=== PATIENT | female | born 1955 | race Caucasian/White ===

== ENCOUNTER 2021-12-10 22:04 | Inpatient (IN) ==
[2021-12-11] MEDS ORDERED: Ondansetron 4 MG/2 ML VIAL IVP PRN (00:38)
[2021-12-11] MEDS ORDERED: Naloxone 0.4 MG/ML INJ IVP PRN (00:38)
[2021-12-11 07:59] LABS: Basophils % 0.2 %; Eosinophils # 0.1 K/mcL (0.0-0.6); Eosinophils % 1.2 %; Hematocrit 36.1 % (35.3-44.9); Hemoglobin 11.3 g/dL (11.5-15.4); Immature Granulocytes % 0.3 % (0-4); Lymphocytes # 1.4 K/mcL (0.6-4.6); Lymphocytes % 23.4 %; Mean Corpuscular HGB Conc 31.3 g/dL (31.6-35.5); Mean Corpuscular Hemoglobin 29.4 pg (28.0-33.3); Mean Corpuscular Volume 93.8 fL (83.0-100.0); Mean Platelet Volume 9.7 fL (9.4-12.4); Monocytes # 0.4 K/mcL (0.0-1.3); Monocytes % 6.6 %; Neutrophils # 4.1 K/mcL (1.6-8.9); Platelet Count 228 K/mcL (140-400); Red Blood Count 3.85 M/mcL (3.82-4.97); Red Cell Distribution Width 13.3 % (11.5-14.5); Segmented Neutrophils % 68.3 %
[2021-12-11 08:09] LABS: Prothrombin Time 11.3 Seconds (9.4-12.1)
[2021-12-11 08:16] LABS: Calcium 8.5 mg/dL (8.6-10.3); Magnesium 1.7 mg/dL (1.6-2.6); Potassium 4.2 mEq/L (3.5-5.1)
[2021-12-11 09:05] LABS: Thyroid Stimulating Hormone 1.294 mcIU/mL (0.340-5.600)
[2021-12-11] MEDS ORDERED: Fluticasone Propionate Nasal 50 MCG/SPRAY BOTTLE NS PRN (10:59)
[2021-12-11] MEDS ORDERED: Ergocalciferol (VIT D2) 50,000 UNIT (1.25MG) CAP PO SCH (11:00)
[2021-12-11] MEDS ORDERED: Dextrose Gel 15 GM/37.5 ML TUBE PO PRN ×2 (11:02)
[2021-12-11] MEDS ORDERED: *HR* Dextrose 50 % in Water (Syg) 50 ML SYRINGE IVP PRN (11:02)
[2021-12-11] MEDS ORDERED: D5% in Water 1,000 ML IVC PRN (11:02)
[2021-12-11] MEDS: Insulin LISPRO 300 UNITS/3 ML VIAL SUBQ SCH ×4 (11:43→20:17)
[2021-12-11] MEDS: Multivit/Ca/Min/Fe/FA 1 TAB TABLET PO SCH (11:48)
[2021-12-11] MEDS: Isosorbide MONOnitrate (24 HR) 30 MG TAB.ER.24H PO SCH (11:48)
[2021-12-11] MEDS: Aspirin Enteric Coated 81 MG Tablet PO SCH (11:48)
[2021-12-11] MEDS: PARoxetine 20 MG TABLET PO SCH (11:49)
[2021-12-11] MEDS: Loratadine 10 MG TABLET PO SCH (11:49)
[2021-12-11] MEDS: carvediloL 6.25 MG TABLET PO SCH ×2 (11:53→16:15)
[2021-12-11] MEDS: Ranolazine 500 MG TAB.ER.12H PO SCH ×2 (11:53→20:16)
[2021-12-11] MEDS: Gabapentin 300 MG CAPSULE PO SCH ×2 (11:53→20:15)
[2021-12-11] MEDS: Acetaminophen 325 MG TABLET PO PRN (13:18)
[2021-12-11] MEDS: Insulin DETEMIR 100 UNIT/ML X5UNITS SUBQ SCH (20:16)
[2021-12-12] MEDS: Acetaminophen 325 MG TABLET PO PRN ×2 (05:41→23:30)
[2021-12-12] MEDS: *HR* Enoxaparin 40 MG/0.4 ML SYRINGE SQ SCH (05:42)
[2021-12-12 07:27] LABS: Calcium 8.9 mg/dL (8.6-10.3); Hematocrit 36.8 % (35.3-44.9); Hemoglobin 11.6 g/dL (11.5-15.4); Mean Corpuscular HGB Conc 31.5 g/dL (31.6-35.5); Mean Corpuscular Hemoglobin 29.4 pg (28.0-33.3); Mean Corpuscular Volume 93.4 fL (83.0-100.0); Platelet Count 239 K/mcL (140-400); Potassium 4.7 mEq/L (3.5-5.1); Red Blood Count 3.94 M/mcL (3.82-4.97); Red Cell Distribution Width 13.4 % (11.5-14.5)
[2021-12-12 07:46] LABS: Thyroid Stimulating Hormone 3.144 mcIU/mL (0.340-5.600)
[2021-12-12] MEDS: Multivit/Ca/Min/Fe/FA 1 TAB TABLET PO SCH (08:16)
[2021-12-12] MEDS: carvediloL 6.25 MG TABLET PO SCH ×2 (08:16→16:43)
[2021-12-12] MEDS: Gabapentin 300 MG CAPSULE PO SCH ×2 (08:16→21:15)
[2021-12-12] MEDS: Ranolazine 500 MG TAB.ER.12H PO SCH ×2 (08:16→21:15)
[2021-12-12] MEDS: Aspirin Enteric Coated 81 MG Tablet PO SCH (08:16)
[2021-12-12] MEDS: Loratadine 10 MG TABLET PO SCH (08:16)
[2021-12-12] MEDS: PARoxetine 20 MG TABLET PO SCH (08:17)
[2021-12-12] MEDS: Isosorbide MONOnitrate (24 HR) 30 MG TAB.ER.24H PO SCH (08:17)
[2021-12-12] MEDS: Cyanocobalamin (B-12) 1,000 MCG TABLET PO SCH (08:17)
[2021-12-12] MEDS: Insulin LISPRO 300 UNITS/3 ML VIAL SUBQ SCH ×7 (08:17→21:15)
[2021-12-12 09:30] LABS: Folate 10.9 ng/mL (3.0-16.0)
[2021-12-12 10:20] LABS: Estimated Average Glucose 229 mg/dl; Hemoglobin A1C 9.6 %
[2021-12-12] MEDS: Insulin DETEMIR 100 UNIT/ML X5UNITS SUBQ SCH (21:15)
[2021-12-12] MEDS ORDERED: Insulin LISPRO 300 UNITS/3 ML VIAL SUBQ SCH (21:26)
[2021-12-13] MEDS: *HR* Enoxaparin 40 MG/0.4 ML SYRINGE SQ SCH (05:29)
[2021-12-13 05:41] LABS: Hematocrit 35.9 % (35.3-44.9); Hemoglobin 11.6 g/dL (11.5-15.4); Mean Corpuscular HGB Conc 32.3 g/dL (31.6-35.5); Mean Corpuscular Hemoglobin 29.7 pg (28.0-33.3); Mean Corpuscular Volume 91.8 fL (83.0-100.0); Mean Platelet Volume 10.2 fL (9.4-12.4); Platelet Count 226 K/mcL (140-400); Red Blood Count 3.91 M/mcL (3.82-4.97); Red Cell Distribution Width 13.2 % (11.5-14.5); White Blood Count 7.6 K/mcL (4.3-11.1)
[2021-12-13] MEDS: Aspirin Enteric Coated 81 MG Tablet PO SCH (08:17)
[2021-12-13] MEDS: Gabapentin 300 MG CAPSULE PO SCH ×2 (08:17→20:31)
[2021-12-13] MEDS: Cyanocobalamin (B-12) 1,000 MCG TABLET PO SCH (08:17)
[2021-12-13] MEDS: Isosorbide MONOnitrate (24 HR) 30 MG TAB.ER.24H PO SCH (08:17)
[2021-12-13] MEDS: carvediloL 6.25 MG TABLET PO SCH ×2 (08:17→17:38)
[2021-12-13] MEDS: Ranolazine 500 MG TAB.ER.12H PO SCH ×2 (08:17→20:31)
[2021-12-13] MEDS: Multivit/Ca/Min/Fe/FA 1 TAB TABLET PO SCH (08:17)
[2021-12-13] MEDS: PARoxetine 20 MG TABLET PO SCH (08:17)
[2021-12-13] MEDS: Loratadine 10 MG TABLET PO SCH (08:17)
[2021-12-13] MEDS: Insulin LISPRO 300 UNITS/3 ML VIAL SUBQ SCH ×3 (08:18→17:22)
[2021-12-13] MEDS: Acetaminophen 325 MG TABLET PO PRN ×2 (08:22→20:32)
[2021-12-13 08:30] LABS: Calcium 8.8 mg/dL (8.6-10.3); Potassium 4.4 mEq/L (3.5-5.1)
[2021-12-13] MEDS: Insulin DETEMIR 100 UNIT/ML X5UNITS SUBQ SCH ×2 (09:18→20:32)
[2021-12-13] MEDS: lamoTRIgine 25 MG TABLET PO SCH (14:25)
[2021-12-13 18:49] VITALS: RESP 16
[2021-12-14] MEDS: *HR* Enoxaparin 40 MG/0.4 ML SYRINGE SQ SCH (06:40)
[2021-12-14 07:30] LABS: Calcium 9.1 mg/dL (8.6-10.3); Potassium 4.1 mEq/L (3.5-5.1)
[2021-12-14 07:32] LABS: Hematocrit 38.2 % (35.3-44.9); Hemoglobin 12.7 g/dL (11.5-15.4); Mean Corpuscular HGB Conc 33.2 g/dL (31.6-35.5); Mean Corpuscular Volume 90.3 fL (83.0-100.0); Mean Platelet Volume 9.9 fL (9.4-12.4); Platelet Count 253 K/mcL (140-400); Red Blood Count 4.23 M/mcL (3.82-4.97); Red Cell Distribution Width 13.3 % (11.5-14.5); White Blood Count 7.8 K/mcL (4.3-11.1)
[2021-12-14] MEDS ORDERED: Insulin LISPRO 300 UNITS/3 ML VIAL SUBQ SCH (07:32)
[2021-12-14] MEDS: Insulin LISPRO 300 UNITS/3 ML VIAL SUBQ SCH ×2 (08:31→12:39)
[2021-12-14] MEDS ORDERED: Insulin DETEMIR 100 UNIT/ML X5UNITS SUBQ SCH (09:00)
[2021-12-14] MEDS: Ranolazine 500 MG TAB.ER.12H PO SCH (10:44)
[2021-12-14] MEDS: Aspirin Enteric Coated 81 MG Tablet PO SCH (10:44)
[2021-12-14] MEDS: Gabapentin 300 MG CAPSULE PO SCH (10:45)
[2021-12-14] MEDS: Loratadine 10 MG TABLET PO SCH (10:45)
[2021-12-14] MEDS: lamoTRIgine 25 MG TABLET PO SCH (10:45)
[2021-12-14] MEDS: PARoxetine 20 MG TABLET PO SCH (10:45)
[2021-12-14] MEDS: Multivit/Ca/Min/Fe/FA 1 TAB TABLET PO SCH (10:45)
[2021-12-14] MEDS: carvediloL 6.25 MG TABLET PO SCH (10:45)
[2021-12-14] MEDS: Isosorbide MONOnitrate (24 HR) 30 MG TAB.ER.24H PO SCH (10:45)
[2021-12-14] MEDS: Cyanocobalamin (B-12) 1,000 MCG TABLET PO SCH (10:45)
[2021-12-14 12:26] VITALS: BP 109/64; PULSE 63; TEMP 98.2; O2SAT 96
== END 2021-12-14 14:44 | disposition other institution (70) | DRG 189 ==
LOC: INPPIK
PROVIDERS: ADMIT Student in an Organized Health Care Education/Training Program; ATTEND Student in an Organized Health Care Education/Training Program

== ENCOUNTER 2021-12-14 13:19 | Inpatient (IN) ==
[2021-12-14] MEDS ORDERED: Fluticasone Propionate Nasal 50 MCG/SPRAY BOTTLE NS PRN (14:54)
[2021-12-14] MEDS ORDERED: *HR* Dextrose 50 % in Water (Syg) 50 ML SYRINGE IVP PRN (14:56)
[2021-12-14] MEDS ORDERED: Dextrose Gel 15 GM/37.5 ML TUBE PO PRN ×2 (14:56)
[2021-12-14] MEDS ORDERED: D5% in Water 1,000 ML IVC PRN (14:56)
[2021-12-14] MEDS ORDERED: Ondansetron ODT 4 MG TAB.RAPDIS SL PRN (14:58)
[2021-12-14] MEDS: Insulin LISPRO 300 UNITS/3 ML VIAL SUBQ SCH ×2 (17:26→20:23)
[2021-12-14] MEDS: carvediloL 6.25 MG TABLET PO SCH (17:27)
[2021-12-14] MEDS: Ranolazine 500 MG TAB.ER.12H PO SCH (20:20)
[2021-12-14] MEDS: Acetaminophen 325 MG TABLET PO PRN (20:20)
[2021-12-14] MEDS: Gabapentin 300 MG CAPSULE PO SCH (20:20)
[2021-12-14] MEDS: Insulin DETEMIR 100 UNIT/ML X5UNITS SUBQ SCH (20:36)
[2021-12-15] MEDS: *HR* Enoxaparin 40 MG/0.4 ML SYRINGE SQ SCH (05:52)
[2021-12-15 07:52] LABS: Basophils % 0.5 %; Eosinophils # 0.2 K/mcL (0.0-0.6); Hemoglobin 11.7 g/dL (11.5-15.4); Immature Granulocytes % 0.5 % (0-4); Lymphocytes # 2.4 K/mcL (0.6-4.6); Lymphocytes % 38.8 %; Mean Corpuscular HGB Conc 32.5 g/dL (31.6-35.5); Mean Corpuscular Hemoglobin 29.8 pg (28.0-33.3); Mean Corpuscular Volume 91.6 fL (83.0-100.0); Mean Platelet Volume 10.2 fL (9.4-12.4); Monocytes # 0.4 K/mcL (0.0-1.3); Monocytes % 7.1 %; Platelet Count 243 K/mcL (140-400); Red Blood Count 3.93 M/mcL (3.82-4.97); Red Cell Distribution Width 13.3 % (11.5-14.5); Segmented Neutrophils % 49.1 %; White Blood Count 6.1 K/mcL (4.3-11.1)
[2021-12-15] MEDS: Aspirin Enteric Coated 81 MG Tablet PO SCH (08:45)
[2021-12-15] MEDS: lamoTRIgine 25 MG TABLET PO SCH (08:46)
[2021-12-15] MEDS: Loratadine 10 MG TABLET PO SCH (08:46)
[2021-12-15] MEDS: Isosorbide MONOnitrate (24 HR) 30 MG TAB.ER.24H PO SCH (08:46)
[2021-12-15] MEDS: Multivit/Ca/Min/Fe/FA 1 TAB TABLET PO SCH (08:46)
[2021-12-15] MEDS: PARoxetine 20 MG TABLET PO SCH (08:46)
[2021-12-15] MEDS: hydroCHLOROthiazide 25 MG TABLET PO SCH (08:46)
[2021-12-15] MEDS: Insulin DETEMIR 100 UNIT/ML X5UNITS SUBQ SCH ×2 (08:46→21:19)
[2021-12-15] MEDS: Ranolazine 500 MG TAB.ER.12H PO SCH ×2 (08:46→21:19)
[2021-12-15] MEDS: Gabapentin 300 MG CAPSULE PO SCH ×2 (08:46→21:19)
[2021-12-15] MEDS: carvediloL 6.25 MG TABLET PO SCH ×2 (08:46→15:58)
[2021-12-15] MEDS: Cyanocobalamin (B-12) 1,000 MCG TABLET PO SCH (08:47)
[2021-12-15] MEDS: Insulin LISPRO 300 UNITS/3 ML VIAL SUBQ SCH ×4 (08:47→21:15)
[2021-12-15 09:23] LABS: Calcium 9.1 mg/dL (8.6-10.3); Potassium 4.3 mEq/L (3.5-5.1)
[2021-12-15] MEDS: Doxycycline 100 MG CAPSULE PO SCH (15:58)
[2021-12-15] MEDS: Acetaminophen 325 MG TABLET PO PRN (21:20)
[2021-12-16] MEDS: *HR* Enoxaparin 40 MG/0.4 ML SYRINGE SQ SCH (05:49)
[2021-12-16] MEDS: Acetaminophen 325 MG TABLET PO PRN ×2 (05:50→18:54)
[2021-12-16] MEDS: Insulin LISPRO 300 UNITS/3 ML VIAL SUBQ SCH ×4 (08:47→20:32)
[2021-12-16] MEDS: Insulin DETEMIR 100 UNIT/ML X5UNITS SUBQ SCH ×2 (10:08→20:31)
[2021-12-16] MEDS: Aspirin Enteric Coated 81 MG Tablet PO SCH (10:09)
[2021-12-16] MEDS: Isosorbide MONOnitrate (24 HR) 30 MG TAB.ER.24H PO SCH (10:09)
[2021-12-16] MEDS: hydroCHLOROthiazide 25 MG TABLET PO SCH (10:09)
[2021-12-16] MEDS: Gabapentin 300 MG CAPSULE PO SCH ×2 (10:09→20:31)
[2021-12-16] MEDS: PARoxetine 20 MG TABLET PO SCH (10:09)
[2021-12-16] MEDS: Loratadine 10 MG TABLET PO SCH (10:09)
[2021-12-16] MEDS: Cyanocobalamin (B-12) 1,000 MCG TABLET PO SCH (10:09)
[2021-12-16] MEDS: Doxycycline 100 MG CAPSULE PO SCH (10:09)
[2021-12-16] MEDS: carvediloL 6.25 MG TABLET PO SCH ×2 (10:09→18:54)
[2021-12-16] MEDS: Ranolazine 500 MG TAB.ER.12H PO SCH ×2 (10:09→20:31)
[2021-12-16] MEDS: Multivit/Ca/Min/Fe/FA 1 TAB TABLET PO SCH (10:09)
[2021-12-16] MEDS: Ergocalciferol (VIT D2) 50,000 UNIT (1.25MG) CAP PO SCH (10:18)
[2021-12-16] MEDS: lamoTRIgine 25 MG TABLET PO SCH (10:18)
[2021-12-16] MEDS: Cefdinir 300 MG CAPSULE PO SCH ×2 (15:14→20:31)
[2021-12-16] MEDS: *HR* Enoxaparin 80 MG/0.8 ML SYRINGE SQ SCH (18:54)
[2021-12-17] MEDS: Acetaminophen 325 MG TABLET PO PRN ×3 (01:27→20:56)
[2021-12-17] MEDS: *HR* Enoxaparin 80 MG/0.8 ML SYRINGE SQ SCH ×2 (06:37→17:36)
[2021-12-17 07:18] LABS: Basophils % 0.3 %; Eosinophils # 0.1 K/mcL (0.0-0.6); Eosinophils % 2.4 %; Hematocrit 36.5 % (35.3-44.9); Hemoglobin 11.9 g/dL (11.5-15.4); Immature Granulocytes % 0.3 % (0-4); Lymphocytes % 34.9 %; Mean Corpuscular HGB Conc 32.6 g/dL (31.6-35.5); Mean Corpuscular Hemoglobin 29.9 pg (28.0-33.3); Mean Corpuscular Volume 91.7 fL (83.0-100.0); Mean Platelet Volume 10.1 fL (9.4-12.4); Monocytes # 0.4 K/mcL (0.0-1.3); Monocytes % 7.7 %; Neutrophils # 3.1 K/mcL (1.6-8.9); Platelet Count 249 K/mcL (140-400); Red Blood Count 3.98 M/mcL (3.82-4.97); Red Cell Distribution Width 13.4 % (11.5-14.5); Segmented Neutrophils % 54.4 %; White Blood Count 5.7 K/mcL (4.3-11.1)
[2021-12-17 07:34] LABS: Magnesium 1.8 mg/dL (1.6-2.6); Potassium 4.1 mEq/L (3.5-5.1)
[2021-12-17] MEDS: carvediloL 6.25 MG TABLET PO SCH ×2 (08:27→17:37)
[2021-12-17] MEDS: Gabapentin 300 MG CAPSULE PO SCH ×2 (08:27→20:57)
[2021-12-17] MEDS: Loratadine 10 MG TABLET PO SCH (08:27)
[2021-12-17] MEDS: hydroCHLOROthiazide 25 MG TABLET PO SCH (08:27)
[2021-12-17] MEDS: Cefdinir 300 MG CAPSULE PO SCH ×2 (08:27→20:57)
[2021-12-17] MEDS: Isosorbide MONOnitrate (24 HR) 30 MG TAB.ER.24H PO SCH (08:28)
[2021-12-17] MEDS: Aspirin Enteric Coated 81 MG Tablet PO SCH (08:28)
[2021-12-17] MEDS: Cyanocobalamin (B-12) 1,000 MCG TABLET PO SCH (08:28)
[2021-12-17] MEDS: PARoxetine 20 MG TABLET PO SCH (08:28)
[2021-12-17] MEDS: Ranolazine 500 MG TAB.ER.12H PO SCH ×2 (08:28→20:57)
[2021-12-17] MEDS: Multivit/Ca/Min/Fe/FA 1 TAB TABLET PO SCH (08:28)
[2021-12-17] MEDS: Insulin DETEMIR 100 UNIT/ML X5UNITS SUBQ SCH ×2 (08:35→19:18)
[2021-12-17] MEDS: lamoTRIgine 25 MG TABLET PO SCH (08:35)
[2021-12-17] MEDS: Insulin LISPRO 300 UNITS/3 ML VIAL SUBQ SCH ×4 (08:36→19:18)
[2021-12-18] MEDS: *HR* Enoxaparin 80 MG/0.8 ML SYRINGE SQ SCH ×2 (05:54→16:44)
[2021-12-18] MEDS: Acetaminophen 325 MG TABLET PO PRN (05:54)
[2021-12-18] MEDS: Isosorbide MONOnitrate (24 HR) 30 MG TAB.ER.24H PO SCH (08:06)
[2021-12-18] MEDS: Cyanocobalamin (B-12) 1,000 MCG TABLET PO SCH (08:07)
[2021-12-18] MEDS: Cefdinir 300 MG CAPSULE PO SCH ×2 (08:07→21:40)
[2021-12-18] MEDS: Gabapentin 300 MG CAPSULE PO SCH ×2 (08:07→21:40)
[2021-12-18] MEDS: PARoxetine 20 MG TABLET PO SCH (08:07)
[2021-12-18] MEDS: lamoTRIgine 25 MG TABLET PO SCH (08:07)
[2021-12-18] MEDS: Multivit/Ca/Min/Fe/FA 1 TAB TABLET PO SCH (08:07)
[2021-12-18] MEDS: hydroCHLOROthiazide 25 MG TABLET PO SCH (08:07)
[2021-12-18] MEDS: Loratadine 10 MG TABLET PO SCH (08:07)
[2021-12-18] MEDS: Aspirin Enteric Coated 81 MG Tablet PO SCH (08:08)
[2021-12-18] MEDS: Ranolazine 500 MG TAB.ER.12H PO SCH ×2 (08:08→21:40)
[2021-12-18] MEDS: carvediloL 6.25 MG TABLET PO SCH ×2 (08:08→16:44)
[2021-12-18] MEDS: Insulin LISPRO 300 UNITS/3 ML VIAL SUBQ SCH ×3 (08:11→21:41)
[2021-12-18] MEDS: Ergocalciferol (VIT D2) 50,000 UNIT (1.25MG) CAP PO SCH (08:11)
[2021-12-18] MEDS: Insulin DETEMIR 100 UNIT/ML X5UNITS SUBQ SCH ×2 (10:44→21:41)
[2021-12-19] MEDS: Acetaminophen 325 MG TABLET PO PRN (06:24)
[2021-12-19] MEDS: *HR* Enoxaparin 80 MG/0.8 ML SYRINGE SQ SCH (06:24)
[2021-12-19 06:33] VITALS: BP 115/69; PULSE 59; RESP 16; TEMP 97.9; O2SAT 95
[2021-12-19] MEDS ORDERED: D5% in Water 1,000 ML IVC PRN (09:32)
[2021-12-19] MEDS ORDERED: Dextrose Gel 15 GM/37.5 ML TUBE PO PRN ×2 (09:32)
[2021-12-19] MEDS ORDERED: *HR* Dextrose 50 % in Water (Syg) 50 ML SYRINGE IVP PRN (09:32)
[2021-12-19] MEDS: Aspirin Enteric Coated 81 MG Tablet PO SCH (09:37)
[2021-12-19] MEDS: Ranolazine 500 MG TAB.ER.12H PO SCH (09:37)
[2021-12-19] MEDS: Isosorbide MONOnitrate (24 HR) 30 MG TAB.ER.24H PO SCH (09:37)
[2021-12-19] MEDS: Gabapentin 300 MG CAPSULE PO SCH (09:37)
[2021-12-19] MEDS: lamoTRIgine 25 MG TABLET PO SCH (09:37)
[2021-12-19] MEDS: Cefdinir 300 MG CAPSULE PO SCH (09:37)
[2021-12-19] MEDS: hydroCHLOROthiazide 25 MG TABLET PO SCH (09:38)
[2021-12-19] MEDS: Loratadine 10 MG TABLET PO SCH (09:38)
[2021-12-19] MEDS: Multivit/Ca/Min/Fe/FA 1 TAB TABLET PO SCH (09:38)
[2021-12-19] MEDS: PARoxetine 20 MG TABLET PO SCH (09:38)
[2021-12-19] MEDS: Cyanocobalamin (B-12) 1,000 MCG TABLET PO SCH (09:38)
[2021-12-19] MEDS: Insulin DETEMIR 100 UNIT/ML X5UNITS SUBQ SCH (09:38)
[2021-12-19] MEDS: carvediloL 6.25 MG TABLET PO SCH (09:38)
[2021-12-19] MEDS: Insulin LISPRO 300 UNITS/3 ML VIAL SUBQ SCH ×2 (10:04→12:21)
== END 2021-12-19 17:23 | disposition home or self-care (01) | DRG 945 ==
LOC: INPPIK 14:45
PROVIDERS: ADMIT Family Medicine; ATTEND Family Medicine